=== PATIENT | male | born 1955 | race Caucasian/White ===

== ENCOUNTER 2018-11-23 23:40 | Inpatient (IN) ==
[2018-11-23] MEDS ORDERED: Morphine Inj 4 MG/ML Vial IV.PUSH ONE (23:55)
[2018-11-24 00:18] LABS: Baso % (Auto) 0.1 % (0.0-2.0); Eos # (Auto) 0.2 th/mm3 (0.0-0.4); Eos % (Auto) 1.6 % (0.0-4.0); Hematocrit 44.3 % (39.0-51.0); Hemoglobin 15.6 gm/dL (13.0-17.0); Lymph # (Auto) 1.6 th/mm3 (1.0-4.8); Lymph % (Auto) 13.4 % (9.0-44.0); Mean Corpuscular HGB Conc 35.3 % (32.0-36.0); Mean Corpuscular Volume 93.5 fL (80.0-100.0); Mean Platelet Volume 8.8 fL (7.0-11.0); Mono # (Auto) 0.9 th/mm3 (0.0-0.9); Mono % (Auto) 7.8 % (0.0-8.0); Neut # (Auto) 9.2 th/mm3 (1.8-7.7); Neut % (Auto) 77.1 % (16.0-70.0); Platelet Count 156 th/mm3 (150-450); Red Blood Count 4.73 mil/mm3 (4.50-5.90); Red Cell Distribution Width 13.9 % (11.6-17.2)
[2018-11-24 00:32] LABS: Activated Partial Thrombo Time 28.5 sec (23.4-31.7); Prothrombin Time 10.5 sec (9.8-11.6)
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
[2018-11-24] MEDS ORDERED: HYDROmorphone PF Inj 2 MG/ML Vial IV.PUSH ONE (01:58)
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
[2018-11-24] MEDS ORDERED: Morphine Sulfate Inj 8 MG/ML Vial IV.PUSH PRN (05:34)
[2018-11-24] MEDS ORDERED: Sod Chloride 0.9% Inj 1,000 ML IV.CONT SCH (05:45)
[2018-11-24] MEDS ORDERED: Pantoprazole Inj 40 MG Vial IV.PUSH SCH (06:00)
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
[2018-11-24] MEDS: Docusate Sodium 100 MG Capsule PO SCH ×2 (11:18→20:03)
[2018-11-24] MEDS ORDERED: Ketorolac Inj 30 MG/ML (IVP) Vial IV.PUSH ONE (13:08)
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
--- NOTE | 2018-11-24 16:55 | P.DCO ---
- Physical Therapy Order: Evaluate and treat, Improve ambulation, Strength and gait training - Home Health Nursing Order: Medical education, Signs/symptoms of disease process, Medication education-adverse effect, Nursing assessment with vital signs - Case Management Consult Case Management Consult-Home Health: Yes - Certification I have seen patient Nii Rogers on 11/24/18. My clinical findings support the need for the requested home health care services because: Limited mobility due to disease progression, Deconditioned with increased weakness, Limited ability to care for self, High risk of falls I certify that my clinical findings support that this patient is homebound because: Post-op weakness, Impaired cognitive ability/safety, Unsteady gait/balance, Unsafe to leave home unassisted, Unable to use public transportation
[2018-11-24] MEDS: Morphine Inj 4 MG/ML Vial IV.PUSH PRN (22:59)
[2018-11-24] MEDS: Ketorolac Inj 30 MG/ML (IVP) Vial IV.PUSH PRN (23:54)
[2018-11-25] MEDS ORDERED: Chlorhexidine Gluconate 2% 1 Pack (2 Cloths) TOPICAL SCH (04:00)
[2018-11-25] MEDS ORDERED: Chlorhexidine Gluconate 2% 1 Pack (2 Cloths) TOPICAL PRN (04:00)
[2018-11-25] MEDS: Ketorolac Inj 30 MG/ML (IVP) Vial IV.PUSH PRN ×3 (05:32→18:24)
[2018-11-25] MEDS: Morphine Inj 4 MG/ML Vial IV.PUSH PRN ×3 (05:38→23:40)
[2018-11-25 05:48] LABS: Baso % (Auto) 0.4 % (0.0-2.0); Eos # (Auto) 0.3 th/mm3 (0.0-0.4); Hematocrit 45.7 % (39.0-51.0); Hemoglobin 15.5 gm/dL (13.0-17.0); Lymph % (Auto) 10.2 % (9.0-44.0); Mean Corpuscular Hemoglobin 32.8 pg (27.0-34.0); Mean Corpuscular Volume 96.5 fL (80.0-100.0); Mean Platelet Volume 8.8 fL (7.0-11.0); Mono # (Auto) 0.5 th/mm3 (0.0-0.9); Mono % (Auto) 5.2 % (0.0-8.0); Neut # (Auto) 8.1 th/mm3 (1.8-7.7); Neut % (Auto) 81.2 % (16.0-70.0); Platelet Count 129 th/mm3 (150-450); Red Blood Count 4.73 mil/mm3 (4.50-5.90); Red Cell Distribution Width 14.2 % (11.6-17.2)
[2018-11-25 09:44] LABS: Anion Gap 7 meq/L (5-15); Blood Urea Nitrogen 10 mg/dL (7-18); Calcium 8.2 mg/dL (8.5-10.1); Carbon Dioxide 26.2 meq/L (21.0-32.0); Chloride 107 meq/L (98-107); Glomerular Filtration Rate Greater Than 89 mL/min (>89); Glucose,Random 114 mg/dL (74-106); Potassium 3.5 meq/L (3.5-5.1); Sodium 140 meq/L (136-145)
[2018-11-25] MEDS: Docusate Sodium 100 MG Capsule PO SCH ×2 (11:11→20:50)
[2018-11-25] MEDS: Ramipril 5 MG Capsule PO SCH (11:41)
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
[2018-11-25 17:07] LABS: Creatine Kinase 90 U/L (39-308)
[2018-11-25 22:20] LABS: Creatine Kinase 78 U/L (39-308)
[2018-11-26] MEDS: Ketorolac Inj 30 MG/ML (IVP) Vial IV.PUSH PRN ×3 (00:05→17:22)
[2018-11-26] MEDS: Morphine Inj 4 MG/ML Vial IV.PUSH PRN (05:03)
[2018-11-26 06:51] LABS: Creatine Kinase 76 U/L (39-308)
--- NOTE | 2018-11-26 08:16 | XR ---
EXAM DATE: 11/26/2018 8:12 AM EST AGE/SEX: 63 years / Male INDICATIONS: Chest pain. CLINICAL DATA: This is the patient's subsequent encounter. Patient reports that signs and symptoms h ave been present for 3 days and indicates a pain score of 8/10. MEDICAL/SURGICAL HISTORY: Hypertension. . Coronary stents. COMPARISON: [facility] [place], CT CHEST W CONTRAST, 11/24/2018. [facility] [place], CHEST 1V SINGLE AP, 11/24/2018. . FINDINGS: Portable AP view of the chest demonstrates a normal-sized cardiac silhouette. Lungs are underinflated and there is mild bibasilar opacity with a somewhat linear appearance. No pleural effusion or pneumo thorax is identified. The bones and soft tissues demonstrate no acute abnormality. CONCLUSION: Underinflation with mild bibasilar opacity with an appearance favoring subsegmental atelectasis. Electronically signed by: Jesu Ludwig MD Board Certified Radiologist 11/26/2018 8:15 AM EST
[2018-11-26] MEDS: Docusate Sodium 100 MG Capsule PO SCH (08:41)
[2018-11-26] MEDS: Ramipril 5 MG Capsule PO SCH (08:43)
[2018-11-26] MEDS ORDERED: Aspirin 325 MG Tablet PO SCH (09:00)
[2018-11-26 10:43] LABS: Baso % (Auto) 0.2 % (0.0-2.0); Eos % (Auto) 0.1 % (0.0-4.0); Hematocrit 42.4 % (39.0-51.0); Hemoglobin 14.5 gm/dL (13.0-17.0); Lymph # (Auto) 0.5 th/mm3 (1.0-4.8); Lymph % (Auto) 6.2 % (9.0-44.0); Mean Corpuscular HGB Conc 34.2 % (32.0-36.0); Mean Corpuscular Hemoglobin 32.9 pg (27.0-34.0); Mean Corpuscular Volume 96.3 fL (80.0-100.0); Mono # (Auto) 0.6 th/mm3 (0.0-0.9); Mono % (Auto) 7.3 % (0.0-8.0); Neut # (Auto) 6.6 th/mm3 (1.8-7.7); Neut % (Auto) 86.2 % (16.0-70.0); Platelet Count 99 th/mm3 (150-450); Red Cell Distribution Width 13.7 % (11.6-17.2); White Blood Count 7.6 th/mm3 (4.0-11.0)
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
[2018-11-26 11:38] LABS: Platelet Morphology Normal (Normal)
--- NOTE | 2018-11-26 12:33 | MR ---
EXAM DATE: 11/26/2018 11:56 AM EST AGE/SEX: 63 years / Male INDICATIONS: . Upper shoulder and neck pain. CLINICAL DATA: This is the patient's subsequent encounter. Patient reports that signs and symptoms h ave been present for 3 days and indicates a pain score of 4/10. MEDICAL/SURGICAL HISTORY: Hypertension. . left hip surgery, cardiac stents [place] [facility] [place]AST, 11/24/2018. . TECHNIQUE: Multiplanar, multisequence MRI examination of the cervical spine was performed without co ntrast. FINDINGS: Vertebrae: Bone marrow signal is within normal limits. There is a mild prevertebral edema extending from C3 inferiorly into the upper thoracic spine. Alignment: No anterolisthesis or retrolisthesis. Cord: Normal signal. Post Fossa: The cerebellar tonsils are normal in position. The craniocervical junction and C1-C2 level demonstrate no acute abnormality. There is degenerative c hange at the anterior atlantodens interval. C2-C3: There is bilateral facet arthrosis, right greater than left. Small diffuse posterior disc ost eophyte complex is present with small right uncovertebral osteophyte. However, no significant spinal canal stenosis or neural foraminal narrowing is appreciated. C3-C4: Decreased disc height with chronic degenerative endplate edema and endplate osteophytes anter iorly. There is a moderate diffuse posterior disc osteophyte complex with uncovertebral osteophytes. Spinal canal is mildly narrowed and cord is mildly effaced. There is moderate bilateral neural forami nal narrowing. C4-C5: There is left facet arthrosis with mild posterior disc osteophyte complex and uncovertebral o steophyte. No spinal canal stenosis is present. Left neural foramen is minimally narrowed. C5-C6: Decreased disc height with endplate osteophytes anteriorly and chronic degenerative endplate change. There is a moderate size posterior disc osteophyte complex which effaces the spinal cord and mildly narrows the spinal canal. There is a right uncovertebral osteophyte causing severe right neura l foraminal stenosis and there is mild left neural foraminal stenosis. C6-C7: Decreased disc height with endplate osteophytes anteriorly and a moderate size posterior disc osteophyte complex and bilateral uncovertebral osteophyte. Spinal canal is mildly narrowed and cord is effaced. There is moderate bilateral neural foraminal stenosis, left greater than right. C7-T1: There is bilateral facet arthrosis, right greater than left and there is a small posterior di sc osteophyte complex. Spinal canal is are not significantly narrowed but there is mild bilateral hamlet ral foraminal stenosis. Other: The visualized surrounding structures demonstrate no acute abnormality. CONCLUSION: 1. Prevertebral edema. Otherwise, no acute abnormality is identified. 2. Severe multilevel degenerative disc disease with mild spinal canal stenosis at C3-C4, C5-C6, and C6-C7. There are multiple areas of neural foraminal narrowing as well. Please see above for detailed description of each level. Electronically signed by: Jesu Ludwig MD Board Certified Radiologist 11/26/2018 12:31 PM EST
--- NOTE | 2018-11-26 23:24 | ECG ---
Date Performed: 11/25/2018 Time Performed: 21:48:50 PTAGE: 63 years EKG: Sinus rhythm INCOMPLETE RIGHT BUNDLE BRANCH BLOCK BORDERLINE ECG PREVIOUS TRACING : 11/25/2018 15.17 DOCTOR: Monique Cooper Interpretating Date/Time 11/26/2018 23:23:01
--- NOTE | 2018-11-26 23:31 | ECG ---
Date Performed: 11/25/2018 Time Performed: 15:17:16 PTAGE: 63 years EKG: Sinus rhythm rSr'(V1) - probable normal variant Normal ECG NO PREVIOUS TRACING DOCTOR: Monique Cooper Interpretating Date/Time 11/26/2018 23:29:41
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
== END 2018-11-26 19:16 | disposition home health service (06) | DRG 552 ==
LOC: NEDA 23:40 → NEPC 23:40 → NEDA 11-24 07:17 → N06 11-24 07:24
PROVIDERS: ADMIT Surgery; ATTEND Surgery
CPT/HCPCS: 70450; 71010; 71045; 71260; 72125; 72132; 72141; 72170; 74177; 80048; 82550; 84484; 85025; 85610; 85730; 86850; 86900; 86901; 90774; 90775; 90784; 93005; 94150; 96374; 96375; 97162; 97166; 97535; 99285; C8952; C9113; J0131; J1170; J1885; J2270; J2405; L0172; L0200; L0484; L0560; L0565; Q9967